=== PATIENT | female | born 1990 | race Caucasian/White ===

== ENCOUNTER 2018-10-27 16:35 | Inpatient (IN) | payer MEDICAID ==
[~2018-10-27] VITALS: Ht 157.5 cm; Wt 74.5 kg
[2018-10-27 17:17] LABS: BASOPHILS 0 % (0-2); EOSINOPHILS 0 % (0-7); HEMATOCRIT 36.4 % (36.0-48.0); HEMOGLOBIN 12.6 g/dL (12-16); IMMATURE GRANULOCYTES 0.2 % (0-5); LYMPHOCYTES 6.1 % (15-50); MCH 28.4 pg (26.0-34.0); MCHC 34.6 g/dL (31.0-37.0); MEAN PLATELET VOLUME 10.8 fL (7.4-10.4); MONOCYTES 0.9 % (2-11); NEUTROPHILS 92.8 % (40-80); PLATELET COUNT 259 10x3/uL (130-400); RBC 4.44 10x6/uL (4.00-5.40); RDW 12.8 % (11.5-14.5); WBC 11.9 10x3/uL (4.8-10.8)
[2018-10-27 17:26] LABS: INR 1.1 (0.85-1.17); PROTIME 13.7 SECONDS (11.6-15.0)
[2018-10-27 17:33] LABS: ALBUMIN 3.5 g/dL (3.4-5.0); ALKALINE PHOSPHATASE 97 U/L (46-116); ALT (SGPT) 59 U/L (10-68); BILIRUBIN - TOTAL 0.23 mg/dL (0.2-1.3); CALC OSMOLALITY 272 mosm/kg (275-300); CALCIUM 8.4 mg/dL (8.5-10.1); CARBON DIOXIDE 22.7 mmol/L (21.0-32.0); CHLORIDE - SERUM 104 mmol/L (98-107); CREATININE - SERUM 0.7 mg/dL (0.6-1.3); GLUCOSE 127 mg/dL (74-106); POTASSIUM - SERUM 3.8 mmol/L (3.5-5.1); PROTEIN - SERUM 7.7 g/dL (6.4-8.2); SODIUM 136 mmol/L (136-145); UREA NITROGEN 10 mg/dL (7-18); eGFR NON AFRICAN AMERICAN > 90 mL/min (90-120)
--- NOTE | 2018-10-27 18:22 | MORECARE ---
CASE MANAGEMENT DISCHARGE SUMMARY PATIENT: BRENT PURVIS UNIT: [id number] ADM DATE: 10/27/18 AGE: 28 : [birth year] SEX: F ROOM/BED: D.2235 AUTHOR: EVELINA,DOC PHYSICIAN: REFERRING PHYSICIAN: JESSICA GUTIERREZ MD DATE OF SERVICE: 10/27/18 Discharge Plan Patient Name: BRENT PURVIS Facility: [facility]:[place] : 1990 Planned Disposition: Home Anticipated Discharge Date: 10/30/18 Discharge Date: Expected LOS: 3 Initial Reviewer: [email or web address] Initial Review Date: 10/27/2018 Generated: 10/27/18 7:22 pm DCP- Discharge Planning Updated by [email or web address]: Karen Presley on 10/27/18 5:[address] Patient Name: BRENT PURVIS Admission Status: ER Accout number: [id number] Admission Date: 10-27-2018 : 1990 Admission Diagnosis: Attending: JESSICA GUTIERREZ Current LOS: 1 Anticipated DC Date: 10-30-2018 Planned Disposition: Home Primary Insurance: MEDICAID [place] Discharge Planning Comments: CM met with patient and her , Eder O'Haver, to complete initial dc planning assessment. CM educated patient on the CM role and verbal consent given by patient to complete assessment. CM verified patient's address, phone number, and emergency contact phone numbers. Patient lives at home with her . At discharge patient plans to return home and feels this is a safe discharge. CM discussed availability of home health, rehab services, and medical equipment. Patient denied known discharge needs at this time. Patient reports her will transport her home at time of discharge. CM will continue to follow and will assist as needed with dc plans/needs. Simplex Operator: Karen Presley RN, [facility] DCPIA - Discharge Planning Initial Assessment Updated by [email or web address]: Karen Presley on 10/27/18 6:17 pm * Is the patient Alert and Oriented? Yes * How many steps to enter\exit or inside your home? None * PCP Dr. Ericka Ambrosio in [place] * Pharmacy [facility] * Preadmission Environment Home with Family * ADLs Independent * Equipment None * List name and contact numbers for known caregivers / representatives who currently or will assist patient after discharge: Eder Lockhartr - [facility] - [phone] * Verbal permission to speak to the caregivers and representatives has been obtained from the patient. Yes * Community resources currently utilized None * Additional services required to return to the preadmission environment? No * Can the patient safely return to the preadmission environment? Yes * Has this patient been hospitalized within the prior 30 days at any hospital? No Patient Name: BRENT PURVIS Page [id number] at 1822 All edits/amendments must be made on the electronic document DICTATION DATE: 10/27/181820 AIRPLANE COVER MAKER: ALEXY 10/27/181820 RPT#: [id number] DC DATE: STATUS: ADM IN [facility] [address] [place] [address] END OF REPORT
--- NOTE | 2018-10-27 19:00 | NUR ---
REPORT RECEIVED AND CARE OF PT ASSUMED. PT LYING IN SUPINE POSITION VISITING WITH SPOUSE. IV IN LEFT AC PATENT WITH NS INFUSING AT 100 ML / HR. NPO STATUS IN PLACE PT GOING TO SURGERY TONIGHT.
--- NOTE | 2018-10-27 19:22 | NUR ---
GAVE DEMERAL AND ZOFRAN IVP PER PRN ORDER, PER REQUEST FOR PAIN AND NAUSEA. WILL MONITOR FOR EFFECTIVENESS.
[2018-10-27 20:00] VITALS: BP 100/63
--- NOTE | 2018-10-27 21:15 | NUR ---
PRE OP MEDS GIVEN. SCOP PATCH PLACED BEHIND RIGHT EAR. HIBACLENS BATH PERFORMED AND NEW GOWN PLACED.
[2018-10-27 21:27] VITALS: BP 100/63
--- NOTE | 2018-10-27 23:00 | NUR ---
PT TAKEN TO OR VIA BED ESCORTED BY OR STAFF AND MD. SPOUSE ESCORTED TO OR WAITING ROOM.
[2018-10-27 23:09] VITALS: Ht 157.5 cm; Wt 74.5 kg
[2018-10-28] VITALS (14 sets, daily range): BP systolic 86–105; BP diastolic 44–56
--- NOTE | 2018-10-28 01:04 | NUR ---
REPORT RECEIVED FROM PACU...PT BEING TRANSPORTED TO ROOM NOW.
--- NOTE | 2018-10-28 01:20 | NUR ---
PT RETURNED FROM SURGERY VIA BED. VITALS STABLE. ASSISTED PT TO AMBULATE TO RESTROOM TO VOID. DRESSING ON RLQ CLEAN AND DRY. RE-STARTED IV FLUIDS @ 100 ML/HR PER ORDER. SCD'S PLACED ON BLE. ICE CHIPS AND ICE WATER PROVIDED...PT TOLERATING WELL. PAIN REPORTED AT 10/27...WILL CONTINUE TO MONITOR. SPOUSE IS AT BEDSIDE.
--- NOTE | 2018-10-28 05:01 | NUR ---
GAVE MORPHINE 2 MG IVP FOR C/O SEVERE PAIN AT LEVEL 6/10. WILL MONITOR FOR EFFECTIVENESS.
[2018-10-28 06:33] LABS: BASOPHILS 0 % (0-2); EOSINOPHILS 0 % (0-7); HEMATOCRIT 35.3 % (36.0-48.0); IMMATURE GRANULOCYTES 0.2 % (0-5); LYMPHOCYTES 6.3 % (15-50); MCH 27.9 pg (26.0-34.0); MCV 82.1 fL (80.0-100.0); MEAN PLATELET VOLUME 11.4 fL (7.4-10.4); MONOCYTES 2.1 % (2-11); NEUTROPHILS 91.4 % (40-80); PLATELET COUNT 242 10x3/uL (130-400); RDW 13.5 % (11.5-14.5); WBC 12.6 10x3/uL (4.8-10.8)
[2018-10-28 07:07] LABS: CALC OSMOLALITY 277 mosm/kg (275-300); CALCIUM 7.7 mg/dL (8.5-10.1); CHLORIDE - SERUM 107 mmol/L (98-107); CREATININE - SERUM 0.7 mg/dL (0.6-1.3); GLUCOSE 117 mg/dL (74-106); MAGNESIUM - SERUM 1.8 mg/dL (1.8-2.4); PHOSPHOROUS 3.2 mg/dL (2.5-4.9); POTASSIUM - SERUM 3.8 mmol/L (3.5-5.1); SODIUM 139 mmol/L (136-145); UREA NITROGEN 10 mg/dL (7-18); eGFR NON AFRICAN AMERICAN > 90 mL/min (90-120)
--- NOTE | 2018-10-28 08:06 | NUR ---
RESTING IN BED. ALERT AND ORIENTED X 3. LUNGS CLEAR BILATERALLY IN ALL MARCUS. HEART SOUNDS S1 AND S2 HEARD IN ALL MARCUS. BOWEL SOUNDS SLUGGISH X 4. STATES HAS NOT HAD BM OR PASSED GAS [place]ET [place] DRSG TO RIGHT INGUINAL AREA INTACT. IV RESITED TO LFA PER REQUEST. IV TO LEFT AC REMOVED WITH TIP INTACT. O2 IN PLACE AT 2L NC. AT BEDSIDE. DENIES PAIN. DENIES NEEDS. CALL GROSS AND PERSONAL ITEMS IN REACH. WILL CONTINUE TO MONITOR.
--- NOTE | 2018-10-28 09:23 | OP ---
PATIENT NAME: BRENT PURVIS MEDICAL RECORD: [id number] :[birth year] LOCATION:D.MS [id number] ADMISSION DATE:10/27/18 SURGEON: JESSICA GUTIERREZ MD DATE OF OPERATION: 10/27/2018 SURGEON: Jessica Gutierrez MD PREOPERATIVE DIAGNOSIS: Incarcerated strangulated incisional hernia. POSTOPERATIVE DIAGNOSIS: Incarcerated strangulated incisional hernia. PROCEDURE PERFORMED: Incarcerated strangulated incisional hernia repair with mesh. ANESTHESIA: General. COMPLICATIONS: None. SPECIMENS: None. Case was clean. OPERATIVE COURSE: After consent was obtained, the patient was taken to the operating room and placed in the supine position on the operating table. Next, general anesthesia was given via endotracheal intubation after a timeout was performed to confirm the correct patient and procedure. The abdomen was then prepped and draped in typical sterile fashion and Ioban dressing was placed. The hernia could be palpated in the right lower quadrant. Local anesthetic was administered. The previous appendectomy incision was opened using a #10-blade scalpel. Dissection continued to the subcutaneous tissue to the level of the external oblique fascia. There was a very small necked hernia noted with a considerable amount of dark dusky-appearing bowel above the external oblique fascia. The hernia sac was meticulously dissected circumferentially using sharp scissor dissection. The fascial hernia defect was extended using electrocautery allowing reduction of the small bowel. The hernia sac was opened. The small bowel was deep red in color but appeared viable. It was covered with warm lap pads. We waited approximately 5-6 minutes and then re-examined the small bowel. The small bowel had markedly improved in color, although bruised and ecchymotic. It appeared viable and intact with no evidence of necrosis. At this time, we decided not to perform a small bowel resection. The small bowel was returned to the abdominal cavity. An Mk retractor was placed. The small bowel was extracorporealized, small bowel was run from the ligament of Treitz to the terminal ileum at the side of the loop of small bowel that was incarcerated on CT scan, all the other bowels appeared intact. Again, as the case progressed, the bowel continued return to a normal color. Again, at this time, all small bowel was returned to the abdomen. The Mk retractor was removed. The peritoneum was closed with 0-Vicryl suture. The internal oblique fascia was closed with #-0 Vicryl suture. The layer between the external and internal oblique fascia was bluntly dissected creating a large space to fit a 4 x 6 Phasix mesh. The Phasix mesh was placed on top of the internal oblique fascia and underneath the external oblique fascia. The external oblique fascia was then closed with a 0-Vicryl suture. The subcutaneous tissue was then copiously irrigated and suctioned. The deep subQ was closed with 3-0 Vicryl suture. The superficial subcutaneous tissue closed OPERATIVE REPORT [id number] BRENT PURVIS with 0-Vicryl suture. The skin was closed with celio. At the end of the case, all needle and instruments correct. No complications occurred. The patient was extubated and transferred to the PACU in stable condition. TRANSINT:[id number] Voice Confirmation ID: [id number] DOCUMENT ID: [id number] JESSICA GUTIERREZ MD at 0923 CC: [id number] DICTATION DATE: 10/28/1839 TRAFFIC SIGN SUPERVISOR: 10/28/18 0439 ADM IN [facility] [address] [id number]
--- NOTE | 2018-10-28 10:01 | NUR ---
RESTING IN BED. PAIN DECREASED TO 2/10 AFTER PRN MORPHINE. DENIES NEEDS.
--- NOTE | 2018-10-28 12:54 | NUR ---
PRN PAIN MEDICATION GIVEN FOR PAIN 11/27. DENIES FURTHER NEEDS.
--- NOTE | 2018-10-28 13:40 | NUR ---
STATES PAIN DECREASED TO 4/10 AFTER PRN NORCO. STATES PAIN WORSE WHEN TAKING DEEP BREATHS. WILL CONTINUE TO MONITOR.
--- NOTE | 2018-10-28 15:06 | NUR ---
WASTED 2MG OF 4MG VIAL OF MORPHINE IN [place]XIS. P[facility]XIS STATES AMOUNT GIVEN 2MG BUT AMOUNT WASTED 0MG. CALLED PHARMACY TO NOTIFY. TUBE SIZER OPERATOR STATED TO MAKE NURSING NOTE.
--- NOTE | 2018-10-28 15:28 | NUR ---
PAIN DECREASED TO 3/10. DENIES FURTHER NEEDS.
--- NOTE | 2018-10-28 18:07 | NUR ---
RESTING IN BED. MOTHER AT BEDSIDE. DENIES NEEDS.
--- NOTE | 2018-10-28 19:40 | NUR ---
PT SITTING UP IN BED, NO SIGNS OF DISTRESS. MOTHER AT BEDSIDE, ALERT AND ORIENTED. DRESSING TO RLQ CDI. SOME TENDERNESS. HAS NOT PASSED GAS OR HAD BM SINCE SURGERY. BOWEL SOUNDS HYPO. IV LEFT FA INFUSING NS @ 100. GAVE MORPHINE 2MG FOR PAIN 01/27 IN ABD. DENIES OTHER NEEDS AT THIS TIME. CL IN REACH, WILL CONT TO MONITOR
[2018-10-29] VITALS: BP 85/42
[2018-10-29 01:30] VITALS: BP 106/61
[2018-10-29 04:00] VITALS: BP 92/53
--- NOTE | 2018-10-29 07:43 | NUR ---
PT ALERT X 4. BREATH SOUNDS CLEAR BILAT. DRESSING TO RLQ. IV TO LEFT WRIST, PATENT, DRESSING CDI. REPORTING PAIN OF 8/10, WILL MONITOR. BED LOW, CALL LIGHT IN REACH . NO OTHER NEEDS AT THIS TIME.
[2018-10-29 08:45] VITALS: BP 100/33
[2018-10-29 12:23] VITALS: BP 100/57
[2018-10-29] MEDS ORDERED: HYDROCODON-ACE1 EAC7 PO (12:25)
[2018-10-29] MEDS ORDERED: LEVOFLOXACIN500 MG PO (12:25)
--- NOTE | 2018-10-29 16:10 | NUR ---
DISCHARGE PAPERWORK SIGNED, ALL QUESTIONS ANSWERED. IV TO LEFT WRIST DC'D, TIP INTACT. ESCORTED OUT BY WHEELCHAIR.
--- NOTE | 2018-10-31 10:11 | MORECARE ---
CASE MANAGEMENT DISCHARGE SUMMARY PATIENT: BRENT PURVIS UNIT: [id number] ADM DATE: 10/27/18 AGE: 28 : [birth year] SEX: F ROOM/BED: D.2235 AUTHOR: EVELINA,DOC PHYSICIAN: REFERRING PHYSICIAN: JESSICA GUTIERREZ MD DATE OF SERVICE: 10/31/18 Discharge Plan Patient Name: BRENT PURVIS Facility: [facility]:[place] : 1990 Planned Disposition: Home Anticipated Discharge Date: 10/30/18 Discharge Date: 10/29/2018 Expected LOS: 3 Initial Reviewer: [email or web address] Initial Review Date: 10/27/2018 Generated: 10/31/18 11:11 am DCP- Discharge Planning Updated by [email or web address]: Karen Presley on 10/27/18 5:[address] Patient Name: BRENT PURVIS Admission Status: ER Accout number: [id number] Admission Date: 10-27-2018 : 1990 Admission Diagnosis: Attending: JESSICA GUTIERREZ Current LOS: 1 Anticipated DC Date: 10-30-2018 Planned Disposition: Home Primary Insurance: MEDICAID [place] Discharge Planning Comments: CM met with patient and her , Eder Andrea'Haver, to complete initial dc planning assessment. CM educated patient on the CM role and verbal consent given by patient to complete assessment. CM verified patient's address, phone number, and emergency contact phone numbers. Patient lives at home with her . At discharge patient plans to return home and feels this is a safe discharge. CM discussed availability of home health, rehab services, and medical equipment. Patient denied known discharge needs at this time. Patient reports her will transport her home at time of discharge. CM will continue to follow and will assist as needed with dc plans/needs. Key Account Director: Karen Presley RN, [facility] DCPIA - Discharge Planning Initial Assessment Updated by [email or web address]: Karen Presley on 10/27/18 6:17 pm * Is the patient Alert and Oriented? Yes * How many steps to enter\exit or inside your home? None * PCP Dr. Ericka Ambrosio in [place] * Pharmacy [facility] * Preadmission Environment Home with Family * ADLs Independent * Equipment None * List name and contact numbers for known caregivers / representatives who currently or will assist patient after discharge: Eder MercadoHaver - [facility] - [phone] * Verbal permission to speak to the caregivers and representatives has been obtained from the patient. Yes * Community resources currently utilized None * Additional services required to return to the preadmission environment? No * Can the patient safely return to the preadmission environment? Yes * Has this patient been hospitalized within the prior 30 days at any hospital? No Last DP export: 10/27/18 5:22 p Patient Name: BRENT PURVIS Page [phone] at 1011 All edits/amendments must be made on the electronic document DICTATION DATE: 10/31/18 1010 MUSIC ADAPTER: ALEXY 10/31/18 1010 RPT#: [id number] DC DATE:10/29/18 STATUS: DIS IN [facility] [address] [place] [address] END OF REPORT
== END 2018-10-29 16:11 | disposition home or self-care (01) | DRG 354 ==
LOC: D.ER 16:35 → D.MS 17:45
PROVIDERS: Family Medicine; ADMIT Surgery; ATTEND Surgery
PROC: 0WUF0JZ Supplement Abdominal Wall with Synthetic Substitute, Open Approach (ICD-10-PCS; principal; 2018-10-27 19:26)
DX: K43.0 Incisional hernia with obstruction, without gangrene (principal); S36.429A Contusion of unspecified part of small intestine, initial encounter